=== PATIENT | female | born 1965 | race African-American/Black ===

== ENCOUNTER 2018-04-16 09:13 | Day surgery (SDC) | payer OTHER ==
[2018-04-04 15:32] VITALS: BMI 23.1
[2018-04-16 14:09] VITALS: TEMP 97.8
[2018-04-16 14:18] VITALS: BP 100/58; PULSE 85
--- NOTE | 2018-04-18 17:53 | PATH ---
Surgical Pathology Report Patient Name: [facility]. Rec. #: [id number] /Age/Gender: 1965 (Age: 52) / F Account: [id number] [facility] 04/16/2018 Received: 04/16/2018 Reported: 04/18/2018 Physicians: Vangie Garg M.D. Specimen(s) Received BIOPSY AT PROMINENT ILEOCECAL VALVE Clinical History Screening Postoperative diagnosis: Prominent ileocecal valve, hemorrhoids Final Diagnosis PROMINENT ILEOCECAL VALVE, BIOPSY: COLONIC MUCOSA WITH FOCAL REACTIVE LYMPHOID AGGREGATE IN THE LAMINA PROPRIA. NO HISTOLOGIC EVIDENCE OF ACTIVE COLITIS. Electronically Signed Sarah Almodovar M.D. Gross Description Received in formalin, labeled "biopsy at prominent ileocecal valve" is a shah, irregular portion of soft tissue measuring 0.4 cm. in greatest dimension. The specimen is submitted in toto in one cassette. /04/17/2018 saudi04/17/2018
== END 2018-04-16 12:30 | disposition home or self-care (01) ==
LOC: FASU-ENDO 09:13
PROVIDERS: ATTEND Internal Medicine Gastroenterology
PROC: 0DBC8ZX Excision of Ileocecal Valve, Via Natural or Artificial Opening Endoscopic, Diagnostic (ICD-10-PCS; principal; 2018-04-16 10:50)
DX: Z12.11 Encounter for screening for malignant neoplasm of colon (principal); K63.89 Other specified diseases of intestine; K64.1 Second degree hemorrhoids
CPT/HCPCS: 88305-TC